=== PATIENT | female | born 1930 | race Caucasian/White ===

== ENCOUNTER 2016-09-24 08:02 | Inpatient (IN) | payer OTHER ==
[~2016-09-24] VITALS: Ht 165.1 cm; Wt 65.8 kg
[~2016-09-24 08:02] MED LIST: AMLODIPINE BESYL5 M1 PO; ARI10 PO; ARICEPT10 MG; COZAAR100 MG PO; FLOVENT HF0.11 MG/A1 INH; IRON325 MG PO; LAC PO; LEVAQUIN500 MG PO; LIPI20 PO; MIRALAX17 GM/Dose PO; NAMENDA10 M2 PO; NOR5; SYNTHROID0.075 MG; SYNTHROID0.075 MG PO; TEGRETOL200 MG PO; VITAMIN B121000 MCG PO; VITAMIN C500 M4 PO; VITAMIN D32000 I2 PO
[2016-09-24 08:35] LABS: BASOPHIL % 0.8 % (0-2)
[2016-09-24 08:37] LABS: PLATELET COUNT 481 x10^3mcL (130-400); RED CELL DISTRIBUTION WIDTH 15.5 % (11.5-14.5)
[2016-09-24 08:37] LABS: microscopic required? YES; urine erythrocyte NEGATIVE (NEGATIVE)
[2016-09-24 08:52] LABS: CARBON DIOXIDE 23.6 mmol/L (21-32); CHLORIDE SERUM 100 mmol/L (98-107); CREATININE SERUM 0.9 mg/dL (0.6-1.0); GLUCOSE SERUM 119 mg/dL (74-106); POTASSIUM SERUM 3.8 mmol/L (3.5-5.1); SODIUM SERUM 133 mmol/L (136-145)
[2016-09-24 08:54] LABS: AMPHETAMINE QUAL UR NONE DETECTED (NEG <=1000)
[2016-09-24 08:55] LABS: ALBUMIN 3.2 g/dL (3.4-5.0); AST/SGOT 24 U/L (15-37); BILIRUBIN TOTAL 0.2 mg/dL (0.20-1.00); TOTAL PROTEIN, SERUM 6.9 g/dL (6.4-8.2)
[2016-09-24 08:56] LABS: ALKALINE PHOSPHATASE 119 U/L (46-116); ALT/SGPT 26 U/L (14-59); CHOLESTEROL 152 mg/dL (<200)
[2016-09-24] MEDS ORDERED: AMLODIPINE BES2.5 M1 PO (09:02)
[2016-09-24] MEDS ORDERED: CALCITRIOL0.25 MCG PO (09:02)
[2016-09-24] MEDS ORDERED: PROS5 PO (09:03)
[2016-09-24] MEDS ORDERED: FERROUS SULFAT325 M2 PO (09:03)
[2016-09-24] MEDS ORDERED: EPO10I IV (09:03)
[2016-09-24] MEDS ORDERED: LEVOTHYROXIN0.075 M2 PO (09:24)
[2016-09-24] MEDS ORDERED: MEMANTINE HCL5 MG PO (09:24)
[2016-09-24] MEDS ORDERED: SYMBICORT1 AE3 INH (09:24)
[2016-09-24] MEDS ORDERED: OXYBUTYNIN CHLOR5 MG PO (09:25)
[2016-09-24] MEDS ORDERED: ARICEPT10 MG PO (09:25)
[2016-09-24] MEDS ORDERED: FERROUS GLUCON324 M1 PO (09:25)
[2016-09-24] MEDS ORDERED: NOR10 PO (09:25)
[2016-09-24] MEDS ORDERED: COZAAR100 MG PO (09:25)
[2016-09-24] MEDS ORDERED: TEGRETOL200 MG PO (09:25)
[2016-09-24] MEDS ORDERED: LIPI20 PO (09:26)
[2016-09-24] MEDS ORDERED: NOVAPLUS V0.09 MG/Ac (09:31)
[2016-09-24] MEDS ORDERED: DELTASONE20 MG PO (09:32)
[2016-09-24 10:15] LABS: MAGNESIUM 1.9 mg/dL (1.8-2.4); PHOSPHOROUS 2.2 mg/dL (2.5-4.9)
[2016-09-24 10:16] LABS: CHOLESTEROL/HDL RATIO 2.2
[2016-09-24 10:53] LABS: FREE T4 1.3 ng/dL (0.76-1.46); FREE THYROXINE INDEX 4.1 ug/dL (1.4-4.5)
[2016-09-24 11:08] LABS: T3 TOTAL 1.03 ng/mL
[2016-09-24 11:41] VITALS: BP 157/40
[2016-09-24 13:57] VITALS: BP 157/40
[2016-09-24 14:00] VITALS: BP 122/80
[2016-09-24 18:04] VITALS: BP 128/49
[2016-09-24 22:11] VITALS: BP 124/42
[2016-09-25 04:41] VITALS: BP 135/51
[2016-09-25 06:39] LABS: BASOPHIL % 0.7 % (0-2); PLATELET COUNT 393 x10^3mcL (130-400)
[2016-09-25 06:59] LABS: RED CELL DISTRIBUTION WIDTH 15.7 % (11.5-14.5)
[2016-09-25 07:00] LABS: CALCIUM 8.7 mg/dL (8.5-10.1); CARBON DIOXIDE 26.3 mmol/L (21-32); CHLORIDE SERUM 104 mmol/L (98-107); CREATININE SERUM 0.8 mg/dL (0.6-1.0); GLUCOSE SERUM 98 mg/dL (74-106); MAGNESIUM 2.1 mg/dL (1.8-2.4); PHOSPHOROUS 4.6 mg/dL (2.5-4.9); POTASSIUM SERUM 5.2 mmol/L (3.5-5.1); SODIUM SERUM 137 mmol/L (136-145)
[2016-09-25 10:00] VITALS: BP 123/35
[2016-09-25 13:49] VITALS: BP 110/39
[2016-09-25 17:47] VITALS: BP 144/53
[2016-09-25 21:55] VITALS: BP 128/59
[2016-09-26 06:57] VITALS: BP 159/51
[2016-09-26 09:37] VITALS: BP 142/47
[2016-09-26 10:55] LABS: BASOPHIL % 0.6 % (0-2)
[2016-09-26 11:05] LABS: PLATELET COUNT 472 x10^3mcL (130-400); RED CELL DISTRIBUTION WIDTH 15.5 % (11.5-14.5)
[2016-09-26 11:12] LABS: CALCIUM 8.8 mg/dL (8.5-10.1); CARBON DIOXIDE 25.1 mmol/L (21-32); CHLORIDE SERUM 101 mmol/L (98-107); CREATININE SERUM 0.7 mg/dL (0.6-1.0); GLUCOSE SERUM 106 mg/dL (74-106); MAGNESIUM 1.9 mg/dL (1.8-2.4); PHOSPHOROUS 3.8 mg/dL (2.5-4.9); POTASSIUM SERUM 4.1 mmol/L (3.5-5.1); SODIUM SERUM 136 mmol/L (136-145)
[2016-09-26 12:57] VITALS: BP 130/43
[2016-09-26 16:57] VITALS: BP 150/53
[2016-09-26 21:15] VITALS: BP 132/49
[2016-09-27 05:28] VITALS: BP 144/50
[2016-09-27 06:45] LABS: BASOPHIL % 0.8 % (0-2)
[2016-09-27 06:51] LABS: PLATELET COUNT 452 x10^3mcL (130-400)
[2016-09-27 06:57] LABS: CALCIUM 8.3 mg/dL (8.5-10.1); CARBON DIOXIDE 24.9 mmol/L (21-32); CHLORIDE SERUM 102 mmol/L (98-107); CREATININE SERUM 0.6 mg/dL (0.6-1.0); GLUCOSE SERUM 95 mg/dL (74-106); POTASSIUM SERUM 4.1 mmol/L (3.5-5.1); SODIUM SERUM 135 mmol/L (136-145)
[2016-09-27 06:58] LABS: ALBUMIN 2.7 g/dL (3.4-5.0)
[2016-09-27 09:44] VITALS: BP 132/45
[2016-09-27] MEDS ORDERED: LEVAQUIN750 MG PO (12:20)
[2016-09-27] MEDS ORDERED: LAC PO (12:20)
[2016-09-27] MEDS ORDERED: IBUPROFEN400 MG PO (12:21)
[2016-09-27 13:11] VITALS: BP 132/45
== END 2016-09-27 14:34 | disposition home health service (06) | DRG 689 ==
LOC: ED 08:02 → DU 08:57 → MU 09-26 11:19
PROVIDERS: Emergency Medicine; Family Medicine; ADMIT Family Medicine
DX: N39.0 Urinary tract infection, site not specified (principal); G93.41 Metabolic encephalopathy; E43 Unspecified severe protein-calorie malnutrition; E87.1 Hypo-osmolality and hyponatremia; B96.1 Klebsiella pneumoniae [K. pneumoniae] as the cause of diseases classified elsewhere; M94.0 Chondrocostal junction syndrome [Tietze]; S92.415A Nondisplaced fracture of proximal phalanx of left great toe, initial encounter for closed fracture; M85.872 Other specified disorders of bone density and structure, left ankle and foot; F03.90 Unspecified dementia, unspecified severity, without behavioral disturbance, psychotic disturbance, mood disturbance, and anxiety; S00.01XD Abrasion of scalp, subsequent encounter; J44.9 Chronic obstructive pulmonary disease, unspecified; M62.50 Muscle wasting and atrophy, not elsewhere classified, unspecified site; R32 Unspecified urinary incontinence; F41.9 Anxiety disorder, unspecified; E83.39 Other disorders of phosphorus metabolism; E03.9 Hypothyroidism, unspecified; D53.9 Nutritional anemia, unspecified; Z68.24 Body mass index [BMI] 24.0-24.9, adult; Z79.52 Long term (current) use of systemic steroids; Z91.81 History of falling; Z66 Do not resuscitate; W01.190D Fall on same level from slipping, tripping and stumbling with subsequent striking against furniture, subsequent encounter; W19.XXXA Unspecified fall, initial encounter; Y92.009 Unspecified place in unspecified non-institutional (private) residence as the place of occurrence of the external cause
CPT/HCPCS: 36600; 83880; 84439; 94150; G0480; J0696; J2060; J2405; J3490; J7030; J7040; J7620; J7626; Q0092